=== PATIENT | female | born 1970 | race Caucasian/White ===

== ENCOUNTER 2017-02-22 11:26 | Emergency (ER) | payer SELFPAY ==
[2017-02-22] MEDS ORDERED: BENADRYL IV ONE (11:45)
[2017-02-22] MEDS ORDERED: DECADRON IV ONE (11:45)
[2017-02-22] MEDS ORDERED: PEPCID IV ONE (11:46)
--- NOTE | 2017-02-22 11:49 | Emergency Department Report ---
HPI - General Chief Complaint: Allergic Reaction Time Seen by Provider: 02/22/17 11:45 - HPI HPI: 46-year-old black female, who was triaged and brought back to room in a timely matter, presented to the ED would left upper lip swelling that started this morning upon awakening. Patient denies any acute allergens but does take lisinopril on a chronic basis. She is also allergic to sulfa drugs. She did not take any medications at home but the surrounding was given a go down after she woke up but symptoms continued to get worse so she came to ED. Patient denies any cough, shortness of breath, itching, wheezing, chest pain. Patient denies any alleviating or exacerbating factors. ED Past Medical Hx - Past Medical History Previous Medical History?: Yes Hx Hypertension: Yes Hx Asthma: Yes - Surgical History Past Surgical History?: Yes Additional Surgical History: hysterectomy. breast lumpectomy - Social History Smoking Status: Never Smoker Substance Use Type: None - Medications Home Medications: Home Medications Medication Instructions Recorded Confirmed Last Taken Type amLODIPine [Norvasc] 10 mg PO DAILY #30 tab 02/22/17 Unknown Rx ED Review of Systems ROS: Stated complaint: ALLERGIC REACTION /SWOLLEN LIP Other details as noted in HPI Comment: All other systems reviewed and negative Constitutional: denies: chills, fever Eyes: denies: eye pain, eye discharge, vision change ENT: other (upper lip swelling) Respiratory: denies: cough, shortness of breath, wheezing Cardiovascular: denies: chest pain, palpitations Endocrine: no symptoms reported Skin: other (upper lip swelling) Physical Exam - Physical Exam Vital Signs: Vital Signs 02/22/17 11:36 Temperature 98.6 F Pulse Rate 95 H Respiratory 16 Rate Blood Pressure 148/89 O2 Sat by Pulse 100 Oximetry Physical Exam: Physical Exam: - General Limitations: No Limitations General appearance: alert, in no apparent distress, obese - Head Head exam: Present: atraumatic, normocephalic, - Eye Eye exam: Present: normal appearance - ENT ENT exam: Present: mucous membranes moist, upper lip swelling mild - Neck Neck exam: Present: normal inspection - Respiratory Respiratory exam: Present: normal lung sounds bilaterally. Absent: respiratory distress - Cardiovascular Cardiovascular Exam: Present: normal rhythm, tachycardia. Absent: systolic murmur, diastolic murmur, rubs, gallop - GI/Abdominal GI/Abdominal exam: Present: soft, normal bowel sounds - Extremities Exam Extremities exam: Present: normal inspection - Back Exam Back exam: Present: normal inspection - Neurological Exam Neurological exam: Present: alert, oriented X3 - Psychiatric Psychiatric exam: normal affect and mood - Skin Skin exam: Present: Upper lip swelling mild. Warm, dry, intact, normal color. Absent: rash ED Course Vital Signs 02/22/17 11:36 Temperature 98.6 F Pulse Rate 95 H Respiratory 16 Rate Blood Pressure 148/89 O2 Sat by Pulse 100 Oximetry Critical care attestation.: If time is entered above; I have spent that time in minutes in the direct care of this critically ill patient, excluding procedure time. ED Disposition Clinical Impression: KAMALJIT inhibitor-aggravated angioedema Qualifiers: Encounter type: initial encounter Qualified Code(s): T78.3XXA - Angioneurotic edema, initial encounter; T46.4X5A - Adverse effect of angiotensin-converting- enzyme inhibitors, initial encounter Hypertension Qualifiers: Hypertension type: essential hypertension Qualified Code(s): I10 - Essential ( primary) hypertension Disposition: DC- TO HOME OR SELFCARE Is pt being admited?: No Does the pt Need Aspirin: No Condition: Stable Instructions: Hypertension (ED) Prescriptions: amLODIPine [Norvasc] 10 mg PO DAILY #30 tab
[2017-02-22 15:42] VITALS: BP 124/79
== END 2017-02-22 15:42 | disposition home or self-care (01) ==
LOC: ED 11:26
DX: T78.3XXA Angioneurotic edema, initial encounter (principal); I10 Essential (primary) hypertension; J45.909 Unspecified asthma, uncomplicated; Y92.9 Unspecified place or not applicable
CPT/HCPCS: 96374; 96375; 99282; J1100; J1200